=== PATIENT | female | born 1980 | race Caucasian/White ===

== ENCOUNTER 2016-08-04 09:55 | Emergency (ER) | payer OTHER | END 2016-08-04 11:10 | disposition home or self-care (01) | LOC: ER 09:55 | DX: S40.011A Contusion of right shoulder, initial encounter (principal); I10 Essential (primary) hypertension; G43.909 Migraine, unspecified, not intractable, without status migrainosus; F17.210 Nicotine dependence, cigarettes, uncomplicated; Z91.040 Latex allergy status; Z88.8 Allergy status to other drugs, medicaments and biological substances; Z79.899 Other long term (current) drug therapy; W22.8XXA Striking against or struck by other objects, initial encounter; Y92.69 Other specified industrial and construction area as the place of occurrence of the external cause; Y99.0 Civilian activity done for income or pay ==